=== PATIENT | female | born 1965 | race Caucasian/White ===

== ENCOUNTER 2021-11-06 06:03 | Day surgery (SDC) | payer BC ==
[~2021-11-06] VITALS: Ht 165.1 cm; Wt 158.4 kg
[~2021-11-06 06:03] MED LIST: LEVSOD25 PO
[2021-11-06] MEDS ORDERED: ESTRADIOL (TWI1 EACH (06:26)
[2021-11-06] MEDS ORDERED: Prinivil10 MG PO (06:27)
[2021-11-06] MEDS ORDERED: SYNTHROID125 MC1 PO (06:27)
--- NOTE | 2021-11-06 07:32 | NUR ---
11/06/21 0732 Vonda Francis MONITOR INTACT WITH CONTINUOUS PULSE OXIMETRY AND INTERMITTENT BP.
== END 2021-11-06 22:39 | disposition home or self-care (01) ==
LOC: ORSCMMR 06:03 → ORD 07:30 → ORSCMMR 07:30
PROVIDERS: Surgery
PROC: 0DJD8ZZ Inspection of Lower Intestinal Tract, Via Natural or Artificial Opening Endoscopic (ICD-10-PCS; principal; 2021-11-06 07:30)
DX: Z12.11 Encounter for screening for malignant neoplasm of colon (principal); Z86.010 Personal history of colon polyps; G47.33 Obstructive sleep apnea (adult) (pediatric); I10 Essential (primary) hypertension; E03.9 Hypothyroidism, unspecified; M79.7 Fibromyalgia; E66.01 Morbid (severe) obesity due to excess calories; Z68.43 Body mass index [BMI] 50.0-59.9, adult; Z79.899 Other long term (current) drug therapy
CPT/HCPCS: J2704; J7120

== ENCOUNTER → 2023-06-06 | Outpatient (CLI) | payer BC ==
[~2023-06-06] MED LIST changes: +ESTRADIOL (TWI1 EACH; +Prinivil10 MG PO; +SYNTHROID125 MC1 PO
== END ==
LOC: PLD 09:56 → LAB SHORT 09:56
DX: R21 Rash and other nonspecific skin eruption (principal)
CPT/HCPCS: 88312

== ENCOUNTER 2025-05-17 13:37 | Inpatient (IN) | payer BC ==
[~2025-05-17] VITALS: Ht 165.1 cm; Wt 161.7 kg
[~2025-05-17 13:37] MED LIST changes: +FURO20 PO; +HYDCHL25 PO; +HYDR1TAB94 PO; +POTCHL20ER PO
[2025-05-17 14:05] LABS: BASOPHILS ABSOLUTE AUTO 0.06 K/mm3 (0.00-0.23); BASOPHILS PERCENT AUTO 0 % (0-2); EOSINOPHILS ABSOLUTE AUTO 0.02 K/mm3 (0.00-0.68); EOSINOPHILS PERCENT AUTO 0 % (0-6); Hematocrit 39.7 % (33.0-51.0); Hemoglobin 12.6 g/dL (11.5-16.0); IMMATURE GRAN ABSOLUTE AUTO 0.06 K/mm3 (0.00-0.10); IMMATURE GRAN PERCENT AUTO 0 % (0-1); LYMPHOCYTES ABSOLUTE AUTO 2.19 K/mm3 (0.84-5.20); LYMPHOCYTES PERCENT AUTO 12 % (21-46); MONOCYTES ABSOLUTE AUTO 1.09 K/mm3 (0.16-1.47); MONOCYTES PERCENT AUTO 6 % (4-13); Mean Corpuscular HGB Conc 31.7 g/dL (31.5-36.5); Mean Corpuscular Volume 93 fL (80-100); NEUTROPHILS ABSOLUTE AUTO 14.76 K/mm3 (1.96-9.15); NEUTROPHILS PERCENT AUTO 81 % (41-73); NRBC ABSOLUTE 0.00 K/mm3 (0.00-0.02); NRBC Auto 0.0 /100 WBC (0.0-0.2); Platelet Count 293 K/mm3 (150-400); RDW Coefficient Variation 14.9 % (11.7-14.2); RDW Standard Deviation 51.4 fL (35.1-46.3)
[2025-05-17 14:28] LABS: Alanine Aminotransfer (ALT/SGP 13.0 U/L (12-78); Albumin, Blood 3.3 g/dL (3.4-5.0); Albumin/Globulin Ratio 0.6 (0.8-1.8); Anion Gap 10.0 mmol/L (3-11); Aspartate Aminotrans (AST/SGOT 19.0 U/L (12-37); Bilirubin, Total 0.7 mg/dL (0.1-1.0); Blood Urea Nitrogen 11.0 mg/dL (8-24); CO2, Blood 22.0 mmol/L (21-32); Calcium, Blood 9.4 mg/dL (8.5-10.1); Chloride, Blood 107.0 mmol/L (98-108); Creatinine, Blood 0.65 mg/dL (0.40-1.00); Globulin, Blood 5.2 g/dL (2.2-4.0); Glucose, Blood 99.0 mg/dL (70-99); Potassium, Blood 4.3 mmol/L (3.5-5.5); Sodium, Blood 135.0 mmol/L (136-145); Total Protein, Blood 8.5 g/dL (6.4-8.2)
[2025-05-17] MEDS ORDERED: NS 1,000 ML IV SCH ×2 (15:30→17:50)
[2025-05-17] MEDS ORDERED: Ketorolac Tromethamine 15mg Vial IV ONE (15:30)
[2025-05-17] MEDS ORDERED: CeFAZolin Sodium 2,000 MG in NS 100 ML IV ONE (15:30)
[2025-05-17] MEDS ORDERED: Vancomycin (Pharmacy Consult) IV SCH (17:35)
[2025-05-17] MEDS ORDERED: Vancomycin HCL 2,500 MG in NS 500 ML IV ONE (18:05)
[2025-05-17 18:45] VITALS: BP 155/67
--- NOTE | 2025-05-17 19:45 | NUR ---
ASSUMPTION/EOS: PATIENT IS ALERT AND ORIENTED X4 ABLE TO MAKE NEEDS KNOWN, PLEASANT, COOPERATIVE. ENDORSES CHILLS, MILDLY FEBRILE AT 99.4. ENDORSES GENERALIZED PAIN. SHE ENDORSES A FALL 6 WEEKS AGO WHICH GAVE HER A LEFT SHOULDER FRACTURE, HEALING, AND LLE HEMATOMA, WHICH POPPED DUE TO SIZE AND IS THE SOURCE OF INFECTION FOR ADMISSION OF SEPSIS CELLULITIS. PATIENT DENIES CHEST APIN PRESSURE OR SOB AT REST. SR AT 80'S. SLIGHTLY HYPERTENSIVE AT 155/67. WAS INFUSING NS BOLUS, BUT IV STARTED TO BECOME PAINFUL, ATTEMPTED TO FLUSH EXPERIENCED EXTREME PAIN, STERILE CAPPED FLUIDS, AND PLACED A POWERGLIDE. 20/10, DIFFICULT INSERTION DUE TO VASCULAR AND ARM SIZE. DRAWS AND FLUSHES WELL. CONTINUOUS TELE IN PLACE. LLE WOUND PICTURES TAKEN BY NIGHT RN. LEG SKIN MARKER LINES IN PLACE. PPP ON BLE PEDAL. LUNG SOUNDS CLEAR AND DIM IN BASES WITH PAIN AND BODY SIZE. ALL CONCERNS RELAYED TO NIGHT RN SHIFT CHANGE. PLAN OF CARE CONTINUES.
[2025-05-17] MEDS ORDERED: IBUP800 PO (20:08)
[2025-05-17 20:28] VITALS: BP 152/63
[2025-05-17] MEDS ORDERED: HYDROcodone 5-APAP 325 TAB PO PRN (20:35)
[2025-05-17] MEDS ORDERED: Heparin Sodium,Porcine 5,000 UNIT/0.5 ML SDV SC SCH (21:00)
[2025-05-17] MEDS ORDERED: Piperacillin/Tazobactam Sod 3.375 GM in NS 100 ML IV SCH (23:06)
[2025-05-17 23:31] VITALS: BP 120/54
[2025-05-18] VITALS (18 sets, daily range): BP systolic 115–165; BP diastolic 58–91
[2025-05-18 04:16] LABS: BASOPHILS ABSOLUTE AUTO 0.03 K/mm3 (0.00-0.23); BASOPHILS PERCENT AUTO 0 % (0-2); EOSINOPHILS ABSOLUTE AUTO 0.07 K/mm3 (0.00-0.68); EOSINOPHILS PERCENT AUTO 1 % (0-6); Hematocrit 30.1 % (33.0-51.0); Hemoglobin 9.6 g/dL (11.5-16.0); IMMATURE GRAN ABSOLUTE AUTO 0.06 K/mm3 (0.00-0.10); IMMATURE GRAN PERCENT AUTO 1 % (0-1); LYMPHOCYTES ABSOLUTE AUTO 1.99 K/mm3 (0.84-5.20); LYMPHOCYTES PERCENT AUTO 18 % (21-46); MONOCYTES ABSOLUTE AUTO 0.83 K/mm3 (0.16-1.47); MONOCYTES PERCENT AUTO 8 % (4-13); Mean Corpuscular HGB Conc 31.9 g/dL (31.5-36.5); Mean Corpuscular Volume 94 fL (80-100); NEUTROPHILS ABSOLUTE AUTO 7.86 K/mm3 (1.96-9.15); NEUTROPHILS PERCENT AUTO 72 % (41-73); NRBC ABSOLUTE 0.00 K/mm3 (0.00-0.02); NRBC Auto 0.0 /100 WBC (0.0-0.2); Platelet Count 245 K/mm3 (150-400); RDW Coefficient Variation 14.9 % (11.7-14.2); RDW Standard Deviation 51.6 fL (35.1-46.3)
[2025-05-18 04:47] LABS: Alanine Aminotransfer (ALT/SGP 8.0 U/L (12-78); Albumin, Blood 2.4 g/dL (3.4-5.0); Albumin/Globulin Ratio 0.6 (0.8-1.8); Anion Gap 8.0 mmol/L (3-11); Aspartate Aminotrans (AST/SGOT 6.0 U/L (12-37); Bilirubin, Total 0.5 mg/dL (0.1-1.0); Blood Urea Nitrogen 8.0 mg/dL (8-24); CO2, Blood 22.0 mmol/L (21-32); Calcium, Blood 7.7 mg/dL (8.5-10.1); Chloride, Blood 113.0 mmol/L (98-108); Creatinine, Blood 0.67 mg/dL (0.40-1.00); Globulin, Blood 3.7 g/dL (2.2-4.0); Glucose, Blood 105.0 mg/dL (70-99); Potassium, Blood 3.4 mmol/L (3.5-5.5); Sodium, Blood 140.0 mmol/L (136-145)
[2025-05-18 04:48] LABS: Total Protein, Blood 6.1 g/dL (6.4-8.2)
[2025-05-18] MEDS ORDERED: Potassium Chl 20MEQ/Water100ML 100 ML IV STA (05:28)
--- NOTE | 2025-05-18 06:21 | NUR ---
SHIFT SUMMARY PT IS A&O X4, TO ABLE TO MAKE NEEDS KNOWN, PT STATES HX OF FALL 7 WEEKS AGO WITH INJURIES OF A LEFT SHOULDER FRACTURE AND RIGHT ACHILLES TEAR, 1 PERSON ASSIST TO BATHROOM, REPOSITIONING SELF IN BED. SPO2 GREATER 90% ON RA WHILE AWAKE, [facility] PROVIDED CPAP WHILE SLEEPING, LUNGS SOUND CLEAR T/O, NO SIGNS OF RESPIRATORY DISTRESS. CONTINUOUS TELE MONITORING, SINUS 90 S, PULSES PRESENT T/O, PT DENEIS CHEST P/P T/O THIS SHIFT, BP STABLE WITH MAP GREATER THAN 65. BOWEL TONES PRESENT IN ALL 4Q, PT DENIES FEELINGS OF NAUSEA, OR CONSTIPATION. VOIDING IND, URINE YELLOW IN COLOR PT HAS OPEN WOUND TO LLE WITH REDNESS AND SWELLING, WOUND CARE PERFORMED THIS SHIFT PER ORDERS, DRESSING IS C/D/I AT THIS TIME, SEE PHOTOS IN CHART PT REPORTING PAIN TO HER NECK AND LLE, MEDICATED PER ORDERS. DR. GARCIAS ROUND ON PT @ APPROX 2210, INFORMED PT THAT DR. FISHER WILL BE ON TOMORROW TO DO HER PROCEDURE BED LOWEST POSITION, CALL LIGHT IN REACH, AWAITING TO GIVE REPORT TO ONCOMING RN.
[2025-05-18] MEDS ORDERED: Midazolam HCl 1MG / ML 2ML Vial ONE ×2 (14:23→14:49)
[2025-05-18] MEDS ORDERED: Ketamine HCl 100 MG / ML 5ML Vial ONE (14:23)
[2025-05-18] MEDS ORDERED: FentaNYL Citrate 50 MCG/ML 2 ML Injection ONE ×2 (14:23→15:25)
[2025-05-18] MEDS ORDERED: FentaNYL Citrate 50 MCG/ML 2 ML Injection IV PRN ×3 (14:50→16:40)
[2025-05-18] MEDS ORDERED: Ondansetron HCl 2 MG / ML 2ML Vial IV PRN (14:55)
[2025-05-18] MEDS ORDERED: HYDROmorphone HCl/Pf 1MG SYR IV PRN (14:55)
[2025-05-18] MEDS ORDERED: Ondansetron HCl 2 MG / ML 2ML Vial ONE (14:58)
[2025-05-18] MEDS ORDERED: HYDROcodone 5-APAP 325 TAB PO PRN (16:40)
--- NOTE | 2025-05-18 17:28 | NUR ---
SHIFT SUMMARY. SHIFT HAS GONE WELL. PT AOX4, PLEASANT, COOPERATIVE, ABLE TO MAKE NEEDS KNOWN. NPO UNTIL 1400 WHEN SHE WAS TAKEN FOR I&D ON LLE. ARRIVED BACK ON UNIT @ ABOUT ~1555, WOUND VAC IN PLACE ON LLE. PT WAS SOMEWHAT PAINFUL ON ARRIVAL BACK TO UNIT BUT DENIED NEEDING PHARMACOLOGICAL AID. HAS BEEN RESTING IN BED SINCE ARRIVAL TO UNIT. VITALS HAVE REMAINED STABLE. MADE MED STATUS NO TELE THIS MORNING. STEADY 1PA TRANSFER TO BATHROOM, CALLS APPROPRIATELY FOR ASSISTANCE. BED LOCKED IN LOWEST POSITION. CALL LIGHT LEFTWITHIN REACH.
[2025-05-19 03:45] VITALS: BP 139/65
--- NOTE | 2025-05-19 05:49 | NUR ---
SHIFT SUMMARY PT IS A&O X4, TO ABLE TO MAKE NEEDS KNOWN, PT STATES HX OF FALL 7 WEEKS AGO WITH INJURIES OF A LEFT SHOULDER FRACTURE AND RIGHT ACHILLES TEAR, 1 PERSON ASSIST TO BATHROOM, REPOSITIONING SELF IN BED, SBA WITH FWW TO BATHROOM. SPO2 GREATER 90% ON RA WHILE AWAKE, [facility] PROVIDED CPAP WHILE SLEEPING, LUNGS SOUND CLEAR T/O, NO SIGNS OF RESPIRATORY DISTRESS. HR 80 S, PULSES PRESENT T/O, PT DENEIS CHEST P/P T/O THIS SHIFT, BP STABLE WITH MAP GREATER THAN 65. BOWEL TONES PRESENT IN ALL 4Q, PT DENIES FEELINGS OF NAUSEA, OR CONSTIPATION. PUREWICK IS CONNECTED TO LOW CONTINUOUS SUCTION, URINE YELLOW IN COLOR PT REPORTING PAIN TO LLE, MEDICATED PER ORDERS. PT HAS WOUND VAC TO LLE, S/P I&D 05/18, REDNESS AND SWEELING TO LLE BELOW THE KNEE. BED LOWEST POSITION, CALL LIGHT IN REACH, AWAITING TO GIVE REPORT TO ONCOMING RN.
[2025-05-19 06:32] LABS: BASOPHILS ABSOLUTE AUTO 0.06 K/mm3 (0.00-0.23); BASOPHILS PERCENT AUTO 1 % (0-2); EOSINOPHILS ABSOLUTE AUTO 0.22 K/mm3 (0.00-0.68); EOSINOPHILS PERCENT AUTO 2 % (0-6); Hematocrit 30.3 % (33.0-51.0); Hemoglobin 9.5 g/dL (11.5-16.0); IMMATURE GRAN ABSOLUTE AUTO 0.03 K/mm3 (0.00-0.10); IMMATURE GRAN PERCENT AUTO 0 % (0-1); LYMPHOCYTES ABSOLUTE AUTO 1.86 K/mm3 (0.84-5.20); LYMPHOCYTES PERCENT AUTO 19 % (21-46); MONOCYTES ABSOLUTE AUTO 0.85 K/mm3 (0.16-1.47); MONOCYTES PERCENT AUTO 9 % (4-13); Mean Corpuscular HGB Conc 31.4 g/dL (31.5-36.5); Mean Corpuscular Volume 94 fL (80-100); NEUTROPHILS ABSOLUTE AUTO 7.00 K/mm3 (1.96-9.15); NEUTROPHILS PERCENT AUTO 70 % (41-73); NRBC ABSOLUTE 0.00 K/mm3 (0.00-0.02); NRBC Auto 0.0 /100 WBC (0.0-0.2); Platelet Count 243 K/mm3 (150-400); RDW Coefficient Variation 15.0 % (11.7-14.2); RDW Standard Deviation 52.0 fL (35.1-46.3)
[2025-05-19 06:54] LABS: Anion Gap 5.0 mmol/L (3-11); Blood Urea Nitrogen 7.0 mg/dL (8-24); CO2, Blood 27.0 mmol/L (21-32); Calcium, Blood 8.5 mg/dL (8.5-10.1); Chloride, Blood 110.0 mmol/L (98-108); Creatinine, Blood 0.64 mg/dL (0.40-1.00); Glucose, Blood 101.0 mg/dL (70-99); Potassium, Blood 3.9 mmol/L (3.5-5.5); Sodium, Blood 138.0 mmol/L (136-145)
[2025-05-19 06:57] LABS: Vancomycin, Trough 17.6 ug/mL (5.0-10.0)
[2025-05-19 07:48] VITALS: BP 146/78
--- NOTE | 2025-05-19 12:39 | NUR ---
Transfer note Pt alert, oriented x4; calm and cooperative with care. Pt resting in bed up with 1 person assist to bathroom. Pt reporting pain to lle, medicated per emar. Wound vac in place; per Dr Ang this am, orders to remove wound vac midday and replace with xeroform, gauze and lightly wrapped. Discussed pain management with Dr Quinones at bedside this am, Dr added gabapentin. Pt denies chest pain/pressure, sob, nausea, dizziness and numb/tingling. Spo2>90% on ra. BP elevated, hr wnl. Abd soft, nontender, +bt; pt reports no bm but passing flatulence. Other vss. Report given to RN assuming care of patient. Pt left PCU at approx 1243.
[2025-05-19 12:56] VITALS: BP 159/69
--- NOTE | 2025-05-19 13:00 | NUR ---
ASSUMED CARE NOTE RECEIVED REPORT FROM CAR[place]INA GALVAN AND ASSUMED CARE OF PT AT 1250. PT A&OX4, VSS, AMB TO BED W/ ASSIST, AND DENIED PAIN. WOUND VAC IN PLACE AND PATENT. PT ORIENTED TO ROOM AND CALL LIGHT. CALL LIGHT PLACED WITHIN REACH.
[2025-05-19] MEDS ORDERED: NS 250 ML IV PRN (13:35)
[2025-05-19 15:45] VITALS: BP 152/85
[2025-05-19] MEDS ORDERED: Piperacillin/Tazobactam Sod 3.375 GM in NS 100 ML IV SCH (16:30)
--- NOTE | 2025-05-19 18:04 | NUR ---
SHIFT SUMMARY PT A&OX4, VSS, AMB W/ ASSIST, TOLERATING PO, VOIDING, AND PAIN MANAGED PER EMAR. WOUND VAC REMAINS IN PLACE AND PATENT PER ORDER. WOUND/TISSUE CULTURES PENDING. PLAN FOR D/C AFTER CULTURES COMPLETE. CALL LIGHT WITHIN REACH AND PT ABLE TO MAKE NEEDS KNOWN.
[2025-05-19 19:41] VITALS: BP 123/64
[2025-05-20 03:36] VITALS: BP 119/67
[2025-05-20 05:51] LABS: BASOPHILS ABSOLUTE AUTO 0.05 K/mm3 (0.00-0.23); BASOPHILS PERCENT AUTO 1 % (0-2); EOSINOPHILS ABSOLUTE AUTO 0.32 K/mm3 (0.00-0.68); EOSINOPHILS PERCENT AUTO 5 % (0-6); Hematocrit 30.4 % (33.0-51.0); Hemoglobin 9.7 g/dL (11.5-16.0); IMMATURE GRAN ABSOLUTE AUTO 0.05 K/mm3 (0.00-0.10); IMMATURE GRAN PERCENT AUTO 1 % (0-1); LYMPHOCYTES ABSOLUTE AUTO 2.39 K/mm3 (0.84-5.20); LYMPHOCYTES PERCENT AUTO 33 % (21-46); MONOCYTES ABSOLUTE AUTO 0.61 K/mm3 (0.16-1.47); MONOCYTES PERCENT AUTO 9 % (4-13); Mean Corpuscular HGB Conc 31.9 g/dL (31.5-36.5); Mean Corpuscular Volume 93 fL (80-100); NEUTROPHILS ABSOLUTE AUTO 3.74 K/mm3 (1.96-9.15); NEUTROPHILS PERCENT AUTO 52 % (41-73); NRBC ABSOLUTE 0.00 K/mm3 (0.00-0.02); NRBC Auto 0.0 /100 WBC (0.0-0.2); Platelet Count 264 K/mm3 (150-400); RDW Coefficient Variation 14.6 % (11.7-14.2); RDW Standard Deviation 50.6 fL (35.1-46.3)
--- NOTE | 2025-05-20 05:54 | NUR ---
SHIFT SUMMARY PT SLEPT INTERMITTENTLY DURING THE NIGHT. MEDICATED FOR LLE AND GENERALIZED PAIN WITH NORCO PER EMAR. PT OOB TO BR WITH FWW AND MINIMAL ASSIST. WOUND VAC INTACT TO LLE. IV ANTIBIOTICS CONTINUE PER ORDER. POWERGLIDE TO LEFT UPPER ARM NOT DRAWING BLOOD THIS AM.
[2025-05-20 06:07] LABS: Anion Gap 7.0 mmol/L (3-11); Blood Urea Nitrogen 6.0 mg/dL (8-24); CO2, Blood 25.0 mmol/L (21-32); Calcium, Blood 9.0 mg/dL (8.5-10.1); Chloride, Blood 109.0 mmol/L (98-108); Creatinine, Blood 0.67 mg/dL (0.40-1.00); Glucose, Blood 104.0 mg/dL (70-99); Potassium, Blood 3.8 mmol/L (3.5-5.5); Sodium, Blood 137.0 mmol/L (136-145)
[2025-05-20 07:16] VITALS: BP 141/72
[2025-05-20] MEDS ORDERED: Polyethylene Glycol 3350 17 gm PO SCH (09:00)
[2025-05-20 16:09] VITALS: BP 129/56
--- NOTE | 2025-05-20 17:40 | NUR ---
SHIFT SUMMARY WOUND VAC REMOVED AND DRESSING APPLIED PER ORDER. NEW PICTURE TAKEN AND PLACED IN CHART. NO GROWTH IN CULTURES AT THIS TIME. PAIN MEDICATED PER EMAR. PT WORKED W/ PHYSICAL AND OCCUPATIONAL THERAPY AND TOLERATED IT WELL, SEE THERAPY NOTES. CALL LIGHT WITHIN REACH AND PT ABLE TO MAKE NEEDS KNOWN.
[2025-05-20] MEDS ORDERED: AMOX-CLAV 875-1 EAC5 PO (18:50)
[2025-05-20 19:56] VITALS: BP 142/71
[2025-05-21 04:43] VITALS: BP 119/78
[2025-05-21 04:46] VITALS: BP 127/73
[2025-05-21 05:44] LABS: BASOPHILS ABSOLUTE AUTO 0.07 K/mm3 (0.00-0.23); BASOPHILS PERCENT AUTO 1 % (0-2); EOSINOPHILS ABSOLUTE AUTO 0.37 K/mm3 (0.00-0.68); EOSINOPHILS PERCENT AUTO 5 % (0-6); Hematocrit 34.2 % (33.0-51.0); Hemoglobin 10.7 g/dL (11.5-16.0); IMMATURE GRAN ABSOLUTE AUTO 0.04 K/mm3 (0.00-0.10); IMMATURE GRAN PERCENT AUTO 1 % (0-1); LYMPHOCYTES ABSOLUTE AUTO 2.52 K/mm3 (0.84-5.20); LYMPHOCYTES PERCENT AUTO 32 % (21-46); MONOCYTES ABSOLUTE AUTO 0.58 K/mm3 (0.16-1.47); MONOCYTES PERCENT AUTO 7 % (4-13); Mean Corpuscular HGB Conc 31.3 g/dL (31.5-36.5); Mean Corpuscular Volume 93 fL (80-100); NEUTROPHILS ABSOLUTE AUTO 4.40 K/mm3 (1.96-9.15); NEUTROPHILS PERCENT AUTO 55 % (41-73); NRBC ABSOLUTE 0.00 K/mm3 (0.00-0.02); NRBC Auto 0.0 /100 WBC (0.0-0.2); Platelet Count 327 K/mm3 (150-400); RDW Coefficient Variation 14.6 % (11.7-14.2); RDW Standard Deviation 50.2 fL (35.1-46.3)
[2025-05-21 06:03] LABS: Anion Gap 6.0 mmol/L (3-11); Blood Urea Nitrogen 6.0 mg/dL (8-24); CO2, Blood 28.0 mmol/L (21-32); Calcium, Blood 9.3 mg/dL (8.5-10.1); Chloride, Blood 108.0 mmol/L (98-108); Creatinine, Blood 0.66 mg/dL (0.40-1.00); Glucose, Blood 96.0 mg/dL (70-99); Potassium, Blood 4.1 mmol/L (3.5-5.5); Sodium, Blood 138.0 mmol/L (136-145)
--- NOTE | 2025-05-21 06:38 | NUR ---
SHIFT SUMMARY PT SLEPT INTERMITTENTLY DURING THE NIGHT. C/O INCREASED PAIN LAST EVENING DUE TO WORKING ON STEPS WITH PT. MEDICATED WITH NORCO AND FENTANYL PER EMAR. IV ANTIBIOTICS CONTNUE PER ORDER. DRESSING C/D/I TO LLE. PT OOB WITH SBA TO BATHROOM. CALL LIGHT WITHIN REACH..
[2025-05-21 07:45] VITALS: BP 139/77
[2025-05-21] MEDS ORDERED: Norco 5-325 Ta1 EACH PO (12:39)
--- NOTE | 2025-05-21 13:18 | NUR ---
DISCHARGE NOTE PT D/C HOME AT 1300. PT PROVIDED W/ VERBAL AND WRITTEN INSTRUCTIONS AND REPORTED UNDERSTANDING. PT A&OX4, VSS, AMB W/ ASSIST, TOLERATING PO, VOIDING, AND PAIN MANAGED PER EMAR. HARD SCRIPT GIVEN. BELONGINGS WERE RETURNED. PT ESCOURTED OUT VIA W/C BY FAMILY.
== END 2025-05-21 13:15 | disposition home or self-care (01) | DRG 854 ==
LOC: ER 13:37 → PCU 17:34 → MEDS 05-19 12:45
PROVIDERS: Orthopaedic Surgery Sports Medicine; Physician Assistant; ADMIT Internal Medicine
PROC: 3E03329 Introduction of Other Anti-infective into Peripheral Vein, Percutaneous Approach (ICD-10-PCS; 2025-05-17)
PROC: 0JBP0ZZ Excision of Left Lower Leg Subcutaneous Tissue and Fascia, Open Approach (ICD-10-PCS; principal; 2025-05-18 13:00)
DX: A41.9 Sepsis, unspecified organism (principal); L02.416 Cutaneous abscess of left lower limb; L03.116 Cellulitis of left lower limb; I10 Essential (primary) hypertension; E03.9 Hypothyroidism, unspecified; M17.0 Bilateral primary osteoarthritis of knee; F32.A Depression, unspecified; G47.33 Obstructive sleep apnea (adult) (pediatric); E66.9 Obesity, unspecified; R73.03 Prediabetes; Z90.710 Acquired absence of both cervix and uterus; Z90.49 Acquired absence of other specified parts of digestive tract; Z98.890 Other specified postprocedural states; Z79.890 Hormone replacement therapy; Z79.899 Other long term (current) drug therapy
CPT/HCPCS: 36415; 73590; 73701; 80048; 80053; 80202; 83605; 85025; 87040; 87070; 87071; 87075; 87077; 87205; 94660; 94760; 94762; 96365; 96375; 97110; 97116; 97162; 97165; 97530; 97535; 99285-25; A9270; J0690; J1644; J1885; J2250; J2405; J2543; J3010; J3373; J3480; J7030; J7040; J7050; Q9967

== ENCOUNTER 2025-06-10 01:52 | Day surgery (SDC) | payer BC ==
[~2025-06-10 01:52] MED LIST changes: +AMOX-CLAV 875-1 EAC5 PO; +Acetaminophen650 M1 PO; +DOXY100 PO; +IBUP800 PO; +Norco 5-325 Ta1 EACH PO; +VISBIOME 112.51 EACH PO
[2025-06-10] MEDS ORDERED: Lidocaine HCl 4% Cream 5 GM ONE (08:08)
== END 2025-06-10 23:00 | disposition home or self-care (01) ==
LOC: WOUND 01:52
DX: S81.802A Unspecified open wound, left lower leg, initial encounter (principal); E11.622 Type 2 diabetes mellitus with other skin ulcer; L02.416 Cutaneous abscess of left lower limb; Z88.1 Allergy status to other antibiotic agents; Z88.5 Allergy status to narcotic agent; X58.XXXA Exposure to other specified factors, initial encounter
CPT/HCPCS: A9270; G0463

== ENCOUNTER 2025-06-17 03:38 | Day surgery (SDC) | payer BC ==
[2025-06-17] MEDS ORDERED: Lidocaine HCl 4% Cream 5 GM ONE (10:05)
== END 2025-06-17 23:01 | disposition home or self-care (01) ==
LOC: WOUND 03:38
DX: S81.802A Unspecified open wound, left lower leg, initial encounter (principal); S81.801A Unspecified open wound, right lower leg, initial encounter
CPT/HCPCS: A9270

== ENCOUNTER 2025-06-24 00:57 | Day surgery (SDC) | payer BC ==
[2025-06-24] MEDS ORDERED: Lidocaine HCl 4% Cream 5 GM ONE (10:10)
== END 2025-06-24 23:00 | disposition home or self-care (01) ==
LOC: WOUND 00:57
DX: T81.31XA Disruption of external operation (surgical) wound, not elsewhere classified, initial encounter (principal); L02.416 Cutaneous abscess of left lower limb; S81.801A Unspecified open wound, right lower leg, initial encounter; X58.XXXA Exposure to other specified factors, initial encounter; E11.9 Type 2 diabetes mellitus without complications
CPT/HCPCS: A9270

== ENCOUNTER 2025-07-05 02:18 | Day surgery (SDC) | payer BC ==
[2025-07-05] MEDS ORDERED: Lidocaine HCl 4% Cream 5 GM ONE (14:29)
== END 2025-07-05 23:00 | disposition home or self-care (01) ==
LOC: WOUND 02:18
DX: S81.811A Laceration without foreign body, right lower leg, initial encounter (principal); S81.802A Unspecified open wound, left lower leg, initial encounter; T81.89XA Other complications of procedures, not elsewhere classified, initial encounter; E11.9 Type 2 diabetes mellitus without complications
CPT/HCPCS: A9270

== ENCOUNTER 2025-07-15 02:16 | Day surgery (SDC) | payer BC ==
[2025-07-15] MEDS ORDERED: Lidocaine HCl 4% Cream 5 GM ONE (13:03)
== END 2025-07-15 23:00 | disposition home or self-care (01) ==
LOC: WOUND 02:16
DX: E11.622 Type 2 diabetes mellitus with other skin ulcer (principal); L97.822 Non-pressure chronic ulcer of other part of left lower leg with fat layer exposed; L97.821 Non-pressure chronic ulcer of other part of left lower leg limited to breakdown of skin; L02.416 Cutaneous abscess of left lower limb; I87.2 Venous insufficiency (chronic) (peripheral)
CPT/HCPCS: A9270

== ENCOUNTER 2025-08-12 00:23 | Day surgery (SDC) | payer BC ==
[2025-08-12] MEDS ORDERED: Lidocaine HCl 4% Cream 5 GM ONE (12:34)
== END 2025-08-12 23:00 | disposition home or self-care (01) ==
LOC: WOUND 00:23
DX: S81.802A Unspecified open wound, left lower leg, initial encounter (principal); E11.622 Type 2 diabetes mellitus with other skin ulcer; L02.416 Cutaneous abscess of left lower limb; E11.51 Type 2 diabetes mellitus with diabetic peripheral angiopathy without gangrene; I87.2 Venous insufficiency (chronic) (peripheral); X58.XXXA Exposure to other specified factors, initial encounter
CPT/HCPCS: A9270

== ENCOUNTER 2025-08-19 02:41 | Day surgery (SDC) | payer BC ==
[2025-08-19] MEDS ORDERED: Lidocaine HCl 4% Cream 5 GM ONE (12:51)
== END 2025-08-19 23:00 | disposition home or self-care (01) ==
LOC: WOUND 02:41
DX: S81.802A Unspecified open wound, left lower leg, initial encounter (principal); E11.51 Type 2 diabetes mellitus with diabetic peripheral angiopathy without gangrene; I87.2 Venous insufficiency (chronic) (peripheral); I10 Essential (primary) hypertension
CPT/HCPCS: A9270

== ENCOUNTER 2025-09-02 00:42 | Day surgery (SDC) | payer BC ==
[2025-09-02] MEDS ORDERED: Lidocaine HCl 4% Cream 5 GM ONE (12:43)
== END 2025-09-02 23:00 | disposition home or self-care (01) ==
LOC: WOUND 00:42
DX: S81.802A Unspecified open wound, left lower leg, initial encounter (principal); E11.622 Type 2 diabetes mellitus with other skin ulcer; E11.51 Type 2 diabetes mellitus with diabetic peripheral angiopathy without gangrene; I87.2 Venous insufficiency (chronic) (peripheral); X58.XXXA Exposure to other specified factors, initial encounter
CPT/HCPCS: A9270